=== PATIENT | female | born 1985 | race Caucasian/White ===

== ENCOUNTER 2017-05-11 12:21 | Emergency (ER) | payer OTHER, BC ==
[~2017-05-11] VITALS: Ht 147.3 cm; Wt 52.2 kg
[~2017-05-11 12:21] MED LIST: IRON325 M1 PO; NICORETTE2 MG MM; PEPCID20 MG PO; PRILOSEC OTC20 MG PO
== END 2017-05-11 15:53 | disposition home or self-care (01) ==
LOC: ED 12:21
DX: S13.4XXA Sprain of ligaments of cervical spine, initial encounter (principal); S23.3XXA Sprain of ligaments of thoracic spine, initial encounter; F17.200 Nicotine dependence, unspecified, uncomplicated; Z88.5 Allergy status to narcotic agent; Z79.899 Other long term (current) drug therapy; V49.9XXA Car occupant (driver) (passenger) injured in unspecified traffic accident, initial encounter
CPT/HCPCS: 72040; 72070; 99283